=== PATIENT | male | born 1960 | race Caucasian/White ===

== ENCOUNTER 2020-03-24 12:25 | Day surgery (SDC) | payer OTHER, SELFPAY ==
[2020-03-23 13:34] VITALS: BMI 18.8
--- NOTE | 2020-03-23 14:27 | P.CONAN_ITS ---
[facility] Past Medical History Medical History (Updated 03/23/20 @ 14:50 by Shira Christy) Above knee amputation of left lower extremity Alcohol abuse Angina pectoris, unspecified Anxiety CAD (coronary artery disease) Chronic anticoagulation Depression Elevated hemoglobin Elevated uric acid in blood Employs prosthetic leg Frontal lobe syndrome History of femoral angiogram HTN (hypertension) Hypomagnesemia Hypophosphatemia Hypovitaminosis D Insomnia Left ankle pain Low back pain NSTEMI (non-ST elevated myocardial infarction) Onychogryposis PAD (peripheral artery disease) Polyneuropathy Weight loss Surgical History Surgical History (Updated 03/23/20 @ 13:29 by Ananya Murray) History of amputation of left lower extremity History of appendectomy History of hemicolectomy History of prostatectomy Social History Social History (Updated 03/23/20 @ 13:30 by Ananya Murray) Smoking Status: Current every day smoker Tobacco Type: Cigarette Smoked in Last 30 Days: Yes Patient Interested in Nicotine Replacement: No Patient Given Instructions on How to Stop Smoking: No Second Hand Smoke Exposure: No Meds Allergies Allergy/AdvReac Type Severity Reaction Status Date / Time morphine [MORPHINE] Allergy Intermediate HIGH TEMP Unverified 03/04/20 14:42 AND NIGHTMARES, nightmares Home Medications Medication Instructions Recorded Confirmed Type amlodipine 1 tab PO DAILY 03/23/20 03/23/20 History aspirin 1 tab PO DAILY 03/23/20 03/23/20 History atorvastatin 1 tab PO DAILY 03/23/20 03/23/20 History buspirone 10 mg PO DAILY 03/23/20 03/23/20 History carvedilol 1 tab PO BID 03/23/20 03/23/20 History diazepam 5 mg PO BID 03/23/20 03/23/20 History gabapentin 400 mg PO BID 03/23/20 03/23/20 History ibuprofen 1 tab PO TID 03/23/20 03/23/20 History lisinopril 1 tab PO DAILY 03/23/20 03/23/20 History melatonin 1 tab PO BEDTIME 03/23/20 03/23/20 History sertraline 1 tab PO DAILY 03/23/20 03/23/20 History Exam Exam Date and Time: March 23, 2020 1427 Height,Weight and Vital Signs: Height 5 ft 7 in Weight 54.431 kg Pertinent Lab Results Pertinent Lab Results: Laboratory Tests 01/14/20 01/14/20 01/14/20 15:06 15:06 15:06 WBC 5.1 Hgb 13.7 L Hct 39.3 L Plt Count 223 PT INR APTT D-Dimer Sodium 139 Potassium 4.6 Chloride 106 Bicarbonate 24 BUN 10 Creatinine 1.01 Magnesium 2.3 Ferritin 145 Total Bilirubin 0.4 Direct Bilirubin 0.2 AST 39 H D ALT 35 Alkaline Phosphatase 96 D Lactate Dehydrogenase 170 Troponin I High Sens 8.8 C-Reactive Protein 0.44 B-Natriuretic Peptide 75 Total Protein 6.8 Albumin 4.3 Coronavirus (PCR) 01/14/20 01/14/20 15:06 15:06 WBC Hgb Hct Plt Count PT 11.1 INR 0.9 APTT 32.7 D-Dimer 2277 Sodium Potassium Chloride Bicarbonate BUN Creatinine Magnesium Ferritin Total Bilirubin Direct Bilirubin AST ALT Alkaline Phosphatase Lactate Dehydrogenase Troponin I High Sens C-Reactive Protein B-Natriuretic Peptide Total Protein Albumin Coronavirus (PCR) NEGATIVE Narrative Narrative: Elevated D-dimer at 12/2019 ED visit. PE/DVT r/o'd. EKG 01/14/2020: NSR@78, LAFB, Inferior infarct (old), no signif change from 04/2019 Cath 02/2018 after VF/Cardiac Arrest (r/t electrolyte disturbance):mild-mod CAD, no explanation for cardiac arrest by coronary anatomy Assessment and Plan Assessment Anesthesia Assessment: Chart Reviewed
== END 2020-03-24 23:59 ==
LOC: HO.SSS 12:25
PROVIDERS: PCP Internal Medicine; Visit Provider Orthopaedic Surgery
DX: M70.22 Olecranon bursitis, left elbow (principal); Z53.9 Procedure and treatment not carried out, unspecified reason

== ENCOUNTER 2020-03-31 09:32 | Day surgery (SDC) | payer OTHER, SELFPAY ==
--- NOTE | 2020-03-30 15:35 | P.CONAN_ITS ---
HPI - Anesthesia Eval Consult details Narrative: 59yo M for Left elbow surgery *morphine allergy* [facility] Past Medical History Medical History (Updated 03/23/20 @ 14:50 by Shira Christy) Above knee amputation of left lower extremity Alcohol abuse Angina pectoris, unspecified Anxiety CAD (coronary artery disease) Chronic anticoagulation Depression Elevated hemoglobin Elevated uric acid in blood Employs prosthetic leg Frontal lobe syndrome History of femoral angiogram HTN (hypertension) Hypomagnesemia Hypophosphatemia Hypovitaminosis D Insomnia Left ankle pain Low back pain NSTEMI (non-ST elevated myocardial infarction) Onychogryposis PAD (peripheral artery disease) Polyneuropathy Weight loss Surgical History Surgical History (Updated 03/23/20 @ 13:29 by Ananya Murray) History of amputation of left lower extremity History of appendectomy History of hemicolectomy History of prostatectomy Social History Social History (Updated 03/23/20 @ 13:30 by Ananya Murray) Smoking Status: Current every day smoker Tobacco Type: Cigarette Second Hand Smoke Exposure: No Meds Allergies Allergy/AdvReac Type Severity Reaction Status Date / Time morphine [MORPHINE] Allergy Intermediate HIGH TEMP Unverified 03/04/20 14:42 AND NIGHTMARES, nightmares Home Medications Medication Instructions Recorded Confirmed Type amlodipine 1 tab PO DAILY 03/23/20 03/23/20 History aspirin 1 tab PO DAILY 03/23/20 03/23/20 History atorvastatin 1 tab PO DAILY 03/23/20 03/23/20 History buspirone 10 mg PO DAILY 03/23/20 03/23/20 History carvedilol 1 tab PO BID 03/23/20 03/23/20 History diazepam 5 mg PO BID 03/23/20 03/23/20 History gabapentin 400 mg PO BID 03/23/20 03/23/20 History ibuprofen 1 tab PO TID 03/23/20 03/23/20 History lisinopril 1 tab PO DAILY 03/23/20 03/23/20 History melatonin 1 tab PO BEDTIME 03/23/20 03/23/20 History sertraline 1 tab PO DAILY 03/23/20 03/23/20 History Exam Exam Date and Time: March 30, 2020 1535 Pertinent Lab Results Pertinent Lab Results: Laboratory Tests 01/14/20 01/14/20 01/14/20 15:06 15:06 15:06 WBC RBC Hgb Hct MCV MCH MCHC RDW Coeff of Alex Plt Count MPV Immature Gran % (Auto) Neut % (Auto) Lymph % (Auto) [place] % (Auto) Eos % (Auto) Baso % (Auto) Abs Immat Gran (auto) Absolute Lymphs (auto) Absolute Monos (auto) Absolute Eos (auto) Absolute Basos (auto) Absolute Nucleated RBC Nucleated RBC % (auto) Absolute Neutrophils PT INR APTT D-Dimer Sodium 139 Potassium 4.6 Chloride 106 Bicarbonate 24 Anion Gap 14 BUN 10 Creatinine 1.01 Estimated Creat Clear 56.8 Est GFR (Non-Af Amer) > 60 Random Glucose 76 Magnesium 2.3 Ferritin 145 Total Bilirubin 0.4 Direct Bilirubin 0.2 AST 39 H D ALT 35 Alkaline Phosphatase 96 D Lactate Dehydrogenase 170 Troponin I High Sens 8.8 C-Reactive Protein 0.44 B-Natriuretic Peptide 75 Total Protein 6.8 Albumin 4.3 Lipase 56 Procalcitonin 0.04 Coronavirus (PCR) 01/14/20 01/14/20 01/14/20 15:06 15:06 15:06 WBC 5.1 RBC 4.35 L Hgb 13.7 L Hct 39.3 L MCV 90.3 MCH 31.5 MCHC 34.9 RDW Coeff of Alex 12.9 Plt Count 223 MPV 10.6 Immature Gran % (Auto) 0.4 Neut % (Auto) 58.3 Lymph % (Auto) 25.1 [place] % (Auto) 13.6 H Eos % (Auto) 1.6 Baso % (Auto) 1.0 Abs Immat Gran (auto) 0.02 Absolute Lymphs (auto) 1.3 Absolute Monos (auto) 0.7 Absolute Eos (auto) 0.1 Absolute Basos (auto) 0.1 Absolute Nucleated RBC 0.000 Nucleated RBC % (auto) 0.0 Absolute Neutrophils 3.0 PT 11.1 INR 0.9 APTT 32.7 D-Dimer 2277 Sodium Potassium Chloride Bicarbonate Anion Gap BUN Creatinine Estimated Creat Clear Est GFR (Non-Af Amer) Random Glucose Magnesium Ferritin Total Bilirubin Direct Bilirubin AST ALT Alkaline Phosphatase Lactate Dehydrogenase Troponin I High Sens C-Reactive Protein B-Natriuretic Peptide Total Protein Albumin Lipase Procalcitonin Coronavirus (PCR) NEGATIVE Narrative Narrative: Elevated D-dimer at 12/2019 ED visit. PE/DVT r/o'd. EKG 01/14/2020: NSR@78, LAFB, Inferior infarct (old), no signif change from 04/2019 Cath 02/2018 after VF/Cardiac Arrest (r/t electrolyte disturbance):mild-mod CAD, no explanation for cardiac arrest by coronary anatomy Assessment and Plan Assessment Anesthesia Assessment: Chart Reviewed
[2020-03-31 11:10] VITALS: BMI 18.8
[2020-03-31 11:11] VITALS: BP 135/80; PULSE 80; RESP 16; TEMP 37.2; O2SAT 98
--- NOTE | 2020-03-31 11:22 | PC.NURSE ---
PT HAS LT PROSTHETIC LEG, REMOVED PRIOR TO SURGERY. SCAB NOTED DIRECTLY ON LEFT ELBOW. MD NOTIFIED AND OK'D TO PROCEED.
[2020-03-31] MEDS: Lactated Ringers 1,000 ML 100 ML IVCONT (11:29)
--- NOTE | 2020-03-31 12:25 | PC.NURSE ---
after personal inspection of the scabbed area to left elbow by surgeon, procedure cancelled. felt to be too risky to proceed due to higher chance of infection.
== END 2020-03-31 23:59 ==
LOC: HO.SSS 09:33
PROVIDERS: PCP Internal Medicine; Visit Provider Orthopaedic Surgery
DX: M70.22 Olecranon bursitis, left elbow (principal); R23.4 Changes in skin texture; Z53.09 Procedure and treatment not carried out because of other contraindication

== ENCOUNTER → 2020-04-08 09:57 | Outpatient (BNVA) | payer OTHER, SELFPAY | PROVIDERS: PCP Internal Medicine; Referring Provider Internal Medicine; Visit Provider Orthopaedic Surgery | DX: M71.129 Other infective bursitis, unspecified elbow (principal); E79.0 Hyperuricemia without signs of inflammatory arthritis and tophaceous disease; I25.119 Atherosclerotic heart disease of native coronary artery with unspecified angina pectoris; I10 Essential (primary) hypertension; E83.42 Hypomagnesemia; E83.39 Other disorders of phosphorus metabolism; F41.8 Other specified anxiety disorders; F10.10 Alcohol abuse, uncomplicated; Z88.5 Allergy status to narcotic agent; Z89.612 Acquired absence of left leg above knee | CPT/HCPCS: 99213 ==

== ENCOUNTER → 2020-04-22 11:20 | Outpatient (BNVA) | payer OTHER, SELFPAY | PROVIDERS: PCP Internal Medicine; Referring Provider Internal Medicine; Visit Provider Orthopaedic Surgery | DX: M71.122 Other infective bursitis, left elbow (principal); F17.210 Nicotine dependence, cigarettes, uncomplicated; Z89.612 Acquired absence of left leg above knee; Z88.6 Allergy status to analgesic agent; Z79.82 Long term (current) use of aspirin; Z79.899 Other long term (current) drug therapy | CPT/HCPCS: 99212 ==

== ENCOUNTER 2020-04-28 08:20 | Outpatient (RCR) | payer OTHER, SELFPAY | END 2020-06-02 13:33 | disposition home or self-care (01) | LOC: HO.WCC 08:20 | PROVIDERS: Visit Provider Surgery | DX: I70.233 Atherosclerosis of native arteries of right leg with ulceration of ankle (principal); L97.312 Non-pressure chronic ulcer of right ankle with fat layer exposed; I70.202 Unspecified atherosclerosis of native arteries of extremities, left leg; Z89.612 Acquired absence of left leg above knee | CPT/HCPCS: 11042; 99212; 99213 ==

== ENCOUNTER 2020-06-21 11:28 | Outpatient (REF) | payer OTHER, SELFPAY | END 2020-06-21 11:29 | disposition home or self-care (01) | LOC: HO.LAB 11:28 | PROVIDERS: Visit Provider Internal Medicine | DX: Z20.828 Contact with and (suspected) exposure to other viral communicable diseases (principal) | CPT/HCPCS: 36415; C9803; U0003 ==

== ENCOUNTER → 2021-03-18 10:59 | Outpatient (BNVA) | payer OTHER, SELFPAY | PROVIDERS: Visit Provider Orthopaedic Surgery | DX: S51.002D Unspecified open wound of left elbow, subsequent encounter (principal); M71.129 Other infective bursitis, unspecified elbow | CPT/HCPCS: 99212 ==

== ENCOUNTER 2021-03-21 13:52 | Outpatient (RCR) | payer OTHER, SELFPAY | END 2021-03-22 14:41 | disposition home or self-care (01) | LOC: HO.WCC 13:52 | PROVIDERS: Visit Provider Physician Assistant | DX: M70.22 Olecranon bursitis, left elbow (principal); I82.409 Acute embolism and thrombosis of unspecified deep veins of unspecified lower extremity; F17.210 Nicotine dependence, cigarettes, uncomplicated; F12.90 Cannabis use, unspecified, uncomplicated; I10 Essential (primary) hypertension; Z89.612 Acquired absence of left leg above knee; L53.9 Erythematous condition, unspecified; Z92.21 Personal history of antineoplastic chemotherapy | CPT/HCPCS: 99213 ==

== ENCOUNTER 2021-04-07 09:11 | Outpatient (REF) | payer OTHER, SELFPAY ==
[2021-04-07 10:11] LABS: Hematocrit 36.7 % (42-52); Hemoglobin 12.4 g/dl (14.0-18.0); Mean Corpuscular HGB Conc 33.8 g/dl (31.0-36.0); Mean Corpuscular Hemoglobin 30.1 pg (27.0-33.0); Mean Corpuscular Volume 89.1 fL (80-98); Mean Platelet Volume 11.1 fL (9.4-12.4); Platelet Count 202 X10*3/uL (160-400); Red Blood Count 4.12 X10*6/uL (4.60-5.80); White Blood Count 5.1 X10*3/uL (4.8-10.8)
[2021-04-07 10:24] LABS: INTERNATIONAL NORM RATIO 0.9 (0.9-1.1); Prothrombin Time 10.3 SEC (9.9-13.0)
[2021-04-07 10:36] LABS: Alanine Aminotransferase 32 U/L (0-40); Albumin Level 4.1 g/dL (3.5-5.0); Alkaline Phosphatase 88 U/L (39-117); Anion Gap 13 (12-20); Aspartate Amino Transferase 29 U/L (5-37); Bilirubin Direct 0.3 mg/dL (0.0-0.5); Bilirubin Total 0.5 mg/dL (0.0-1.0); Blood Urea Nitrogen 14 mg/dL (9-16); Calcium 9.5 mg/dL (8.4-10.2); Carbon Dioxide 25 mmol/L (22-29); Chloride 109 mmol/L (96-108); Estimated Glomerular Filt Rate 49; Glucose Random 89 mg/dL (60-115); Potassium 4.1 mmol/L (3.3-5.1); Sodium 143 mmol/L (135-145); Total Protein 6.9 g/dL (6.5-8.0)
== END 2021-04-07 09:12 | disposition home or self-care (01) ==
LOC: HO.LAB 09:11
PROVIDERS: PCP Physician Assistant; Visit Provider Internal Medicine
DX: Z01.818 Encounter for other preprocedural examination (principal); I10 Essential (primary) hypertension
CPT/HCPCS: 36415; 80048; 80076; 85027; 85610

== ENCOUNTER → 2021-04-15 11:22 | Outpatient (BNVA) | payer OTHER, SELFPAY | PROVIDERS: PCP Student in an Organized Health Care Education/Training Program; Visit Provider Physician Assistant | DX: Z01.818 Encounter for other preprocedural examination (principal); M71.122 Other infective bursitis, left elbow; S51.009D Unspecified open wound of unspecified elbow, subsequent encounter | CPT/HCPCS: 99212 ==

== ENCOUNTER 2021-04-20 11:51 | Day surgery (SDC) | payer OTHER, SELFPAY ==
[2021-04-11 13:24] VITALS: BMI 20.3
--- NOTE | 2021-04-11 13:43 | P.CONAN_ITS ---
Documented by User: Shira Christy NP 04/19/21 08:59 HPI - Anesthesia Eval Consult details Narrative: 60yo M for Left Olecranon ORIF Bursectomy PCP cleared (cardiac hx, but managed by PCP now) - moderate risk Plavix for h/o DVT and PAD s/p L AKA d/t failed fem-fem bypass ETOH daily PMFSH Active Problems Active Problems: All Active Problems (Updated 04/11/21 @ 13:22 by Maddie Milligan RN) Elbow wound (Acute) Pre-op evaluation (Acute) Subarachnoid hemorrhage, postinjury with < 1 hour LOC (Acute) Tobacco use disorder (Acute) Lumbar radiculopathy (Acute) CAD (coronary artery disease) (Acute) Hypovitaminosis D (Acute) Depression with anxiety (Acute) Malnutrition (Acute) Septic olecranon bursitis (Acute) Pure hypercholesterolemia (Acute) Essential hypertension (Acute) Past Medical History Medical History (Updated 04/11/21 @ 13:22 by Maddie Milligan RN) Above knee amputation of left lower extremity Alcohol abuse Angina pectoris, unspecified Arthritis CAD (coronary artery disease) Chronic anticoagulation COVID-19 vaccine administered Depression with anxiety DVT (deep venous thrombosis) Elevated hemoglobin Elevated uric acid in blood Employs prosthetic leg Essential hypertension Frontal lobe syndrome Heartburn History of femoral angiogram Hypomagnesemia Hypophosphatemia Hypovitaminosis D Insomnia Left ankle pain Low back pain Lumbar radiculopathy Malnutrition NSTEMI (non-ST elevated myocardial infarction) Onychogryposis PAD (peripheral artery disease) Polyneuropathy Pure hypercholesterolemia Septic olecranon bursitis Subarachnoid hemorrhage Weight loss Family History Family History Father Lung cancer Substance abuse Mother No problems noted. Surgical History Surgical History H/O colonoscopy History of amputation of left lower extremity History of appendectomy History of hemicolectomy History of prostatectomy Hx of knee surgery Hx of vascular surgery Social History Social History Housing: House Do you presently have visiting nurse or other home services: Yes ([employer]) Alcohol intake: current Alcohol intake frequency: 0-2 drinks per day Patient Tobacco Use Status: Current everyday Tobacco user Tobacco use type: Cigarette Cigarette Packs Per Day: 0.3 Cigarettes Per Day: 6.0 Years Smoked: 47 Smoked in Last 30 Days: Yes e-Cigarette/Vaping Use: Never Used Second Hand Smoke Exposure: No Use of substances other than those prescribed or required for medical reasons: Yes Substance Use Type Other:: advised to hold pre-op Substance Use Frequency: Daily Have you been hit, kicked, punched, or otherwise hurt by someone within the past year? If so, by whom?: No Are you DNR?: No Advance Directives: Yes Advance Directives Information Provided: Yes Advance Directives on File: Yes Advance Directives Date on File: 03/31/20 Recently lost weight without trying: No Eating poorly because of decreased appetite: No Nutrition Risks: No Nutritional Risk Poor oral hygiene: No (lower partial / adentulous (upper)) service: No Current occupational status: disabled Current occupational exposures/hazards: No Meds Allergies Allergy/AdvReac Type Severity Reaction Status Date / Time morphine [MORPHINE] Allergy Intermediate diaphoresis Verified 04/20/21 12:21 /fever/nigh tmares Home Medications Medication Instructions Recorded Confirmed Last Taken Type atorvastatin 40 mg tablet 40 mg PO BEDTIME 04/11/21 04/11/21 Unknown History clopidogrel 75 mg tablet 1 tab PO DAILY 04/11/21 04/11/21 04/17/21 History Exam Exam Date and Time: April 11, 2021 1343 Height,Weight and Vital Signs: Height 5 ft 7 in Weight 58.967 kg Pertinent Lab Results Pertinent Lab Results: Laboratory Tests 04/07/21 04/07/21 09:33 09:33 WBC 5.1 Hgb 12.4 L Hct 36.7 L Plt Count 202 Sodium 143 Potassium 4.1 Chloride 109 H Carbon Dioxide 25 BUN 14 Creatinine 1.46 H Laboratory Tests 04/07/21 04/07/21 09:33 09:33 PT 10.3 INR 0.9 Total Bilirubin 0.5 Direct Bilirubin 0.3 AST 29 ALT 32 Alkaline Phosphatase 88 Total Protein 6.9 Albumin 4.1 Narrative Narrative: EKG 03/2021 NSR @ 65 Marked LAD long QTc @ 478 Assessment and Plan Assessment Anesthesia Assessment: Chart Reviewed Documented by User: Suha Berman MD 04/20/21 12:35 [facility] Past Medical History Medical History (Updated 04/11/21 @ 13:22 by Maddie Milligan RN) Above knee amputation of left lower extremity Alcohol abuse Angina pectoris, unspecified Arthritis CAD (coronary artery disease) Chronic anticoagulation COVID-19 vaccine administered Depression with anxiety DVT (deep venous thrombosis) Elevated hemoglobin Elevated uric acid in blood Employs prosthetic leg Essential hypertension Frontal lobe syndrome Heartburn History of femoral angiogram Hypomagnesemia Hypophosphatemia Hypovitaminosis D Insomnia Left ankle pain Low back pain Lumbar radiculopathy Malnutrition NSTEMI (non-ST elevated myocardial infarction) Onychogryposis PAD (peripheral artery disease) Polyneuropathy Pure hypercholesterolemia Septic olecranon bursitis Subarachnoid hemorrhage Weight loss Functional capacity: independent ambulation Family History Family History Father Lung cancer Substance abuse Mother No problems noted. 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 If so, by whom?: No Are you DNR?: No Advance Directives: Yes Advance Directives Information Provided: Yes Advance Directives on File: Yes Advance Directives Date on File: 03/31/20 Recently lost weight without trying: No Eating poorly because of decreased appetite: No Nutrition Risks: No Nutritional Risk Poor oral hygiene: No (lower partial / adentulous (upper)) service: No Current occupational status: disabled Current occupational exposures/hazards: No Meds Allergies Allergy/AdvReac Type Severity Reaction Status Date / Time morphine [MORPHINE] Allergy Intermediate diaphoresis Verified 04/20/21 12:21 /fever/nigh tmares Home Medications Medication Instructions Recorded Confirmed Last Taken Type atorvastatin 40 mg tablet 40 mg PO BEDTIME 04/11/21 04/11/21 Unknown History clopidogrel 75 mg tablet 1 tab PO DAILY 04/11/21 04/11/21 04/17/21 History Exam Airway Mallampati Class: II TM Dist: >3cm Denture: Upper and Lower Heart: RRR Lungs: CTA Assessment and Plan Final Anesthetic Review Family History of Problems with Anesthesia: No History of Problems with Anesthesia: No ASA Class: III Final Preanesthetic Review: No Changes in Pt Med Stat Patient Risk: Intermediate Procedure Risk: Intermediate Anesthetic Plan Anesthetic Plan: GA Disposition: Standard PACU
[2021-04-20] VITALS (7 sets, daily range): BP systolic 151–176; BP diastolic 82–94; PULSE 76–81; RESP 16–18; TEMP 36.2–37.3; O2SAT 96–99
[2021-04-20] MEDS: Lactated Ringers 1,000 ML 100 ML IVCONT (13:10)
--- NOTE | 2021-04-20 15:08 | HO.ANESPROP2 ---
[facility] Active Problems Active Problems: All Active Problems (Updated 04/11/21 @ 13:22 by Maddie Milligan RN) Elbow wound (Acute) Pre-op evaluation (Acute) Subarachnoid hemorrhage, postinjury with < 1 hour LOC (Acute) Tobacco use disorder (Acute) Lumbar radiculopathy (Acute) CAD (coronary artery disease) (Acute) Hypovitaminosis D (Acute) Depression with anxiety (Acute) Malnutrition (Acute) Septic olecranon bursitis (Acute) Pure hypercholesterolemia (Acute) Essential hypertension (Acute) Past Medical History Medical History (Updated 04/11/21 @ 13:22 by Maddie Milligan RN) Above knee amputation of left lower extremity Alcohol abuse Angina pectoris, unspecified Arthritis CAD (coronary artery disease) Chronic anticoagulation COVID-19 vaccine administered Depression with anxiety DVT (deep venous thrombosis) Elevated hemoglobin Elevated uric acid in blood Employs prosthetic leg Essential hypertension Frontal lobe syndrome Heartburn History of femoral angiogram Hypomagnesemia Hypophosphatemia Hypovitaminosis D Insomnia Left ankle pain Low back pain Lumbar radiculopathy Malnutrition NSTEMI (non-ST elevated myocardial infarction) Onychogryposis PAD (peripheral artery disease) Polyneuropathy Pure hypercholesterolemia Septic olecranon bursitis Subarachnoid hemorrhage Weight loss Functional capacity: independent ambulation Family History Family History Father Lung cancer Substance abuse Mother No problems noted. 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 If so, by whom?: No Are you DNR?: No Advance Directives: Yes Advance Directives Information Provided: Yes Advance Directives on File: Yes Advance Directives Date on File: 03/31/20 Recently lost weight without trying: No Eating poorly because of decreased appetite: No Nutrition Risks: No Nutritional Risk Poor oral hygiene: No (lower partial / adentulous (upper)) service: No Current occupational status: disabled Current occupational exposures/hazards: No Meds Allergies Allergy/AdvReac Type Severity Reaction Status Date / Time morphine [MORPHINE] Allergy Intermediate diaphoresis Verified 04/20/21 12:21 /fever/nigh tmares Active Medications: Current Medications Albuterol Sulfate (Albuterol Sulfate (0.083%) 2.5 Mg/3 Ml Vial.Neb) 2.5 mg INHALE ONCE PRN PRN Reason: Shortness of Breath/Wheezing Fentanyl (Fentanyl Citrate/Pf 100 Mcg/2 Ml Vial) 25 mcg IVPUSH Q5M PRN; Protocol PRN Reason: Pain, Moderate (Pain Scale 4-6 Lactated Ringer's (Lr) 1,000 mls @ 100 mls/hr IVCONT .Q10H ROLAN Last Admin: 04/20/21 13:10 Dose: 100 mls/hr Documented by: Home Medications Medication Instructions Recorded Confirmed Last Taken Type atorvastatin 40 mg tablet 40 mg PO BEDTIME 04/11/21 04/11/21 Unknown History clopidogrel 75 mg tablet 1 tab PO DAILY 04/11/21 04/11/21 04/17/21 History Exam Exam Date and Time: April 20, 2021 1508 Height,Weight and Vital Signs: Height 5 ft 7 in Weight 58.967 kg Last Vital Signs Temp 99.2 F 04/20/21 12:26 Pulse 81 04/20/21 12:26 Resp 16 04/20/21 12:26 BP 172/85 H 04/20/21 12:26 Pulse Ox 99 04/20/21 12:26 Airway Mallampati Class: II TM Dist: >3cm Neck ROM: Full Denture: Upper Heart: RRR Lungs: CTA Assessment and Plan Final Anesthetic Review Family History of Problems with Anesthesia: No History of Problems with Anesthesia: No
--- NOTE | 2021-04-20 15:32 | PM.OP ---
Brief Operative Note Date of Service: 04/20/21 Pre-op diagnosis: chronic bursitis left elbow Post-op diagnosis: same Procedure: left elbow bursectomy Surgeon: Jacob Arana MD Anesthesia: GETA and local Was an Graduate Engineer used for this Procedure?: No Estimated blood loss (mL): 5 Tourniquet time (min): 17 IV fluids (mL): 400 Pathology: other Condition: stable Disposition: PACU
[2021-04-20] MEDS: oxyCODONE HCl Immed Release 5 MG TABLET PO (16:20)
--- NOTE | 2021-05-11 12:03 | P.OP_ITS ---
Operative Note Operative Note Date of Service: 05/11/21 Narrative: Pre-op diagnosis: chronic bursitis left elbow Post-op diagnosis: same Procedure: left elbow bursectomy Surgeon: Jacob Arana MD Anesthesia: GETA and local Was an [place] Laboratory Assistant used for this Procedure?: No Estimated blood loss (mL): 5 Tourniquet time (min): 17 IV fluids (mL): 400 Pathology: other Condition: stable Disposition: PACU Procedure in detail: Ruddy was brought to the operating room placed supine the operative table and prepped and draped in standard sterile fashion. A time-out was called to identify proper site, proper procedure, proper surgeon and IV antibiotics per weight were administered. I injected approximately 10 minutes mL of 0.25% Marcaine without epinephrine around the olecranon bursa. I began by extending the posterior olecranon open draining sinus proximally and distally about 5 mm. I then removed copious non purulent bursal tissue. There was no soila purulence. The bone was debrided and the skin was then. I then irrigated copiously and closed with nylon suture in inverted mattress fashion. The skin quality was reasonable and there was no evidence of soila infection. Sterile dressings were then applied and the patient was awakened from anesthesia brought to recovery room in stable condition. there were no known complications.
== END 2021-04-20 16:57 | disposition home or self-care (01) ==
PROVIDERS: PCP Internal Medicine; Visit Provider Orthopaedic Surgery
PROC: (CPT 24105; principal; 2021-04-20 13:20)
DX: M71.122 Other infective bursitis, left elbow (principal); I10 Essential (primary) hypertension; I25.10 Atherosclerotic heart disease of native coronary artery without angina pectoris; I25.2 Old myocardial infarction; I73.9 Peripheral vascular disease, unspecified; F10.10 Alcohol abuse, uncomplicated; Z89.612 Acquired absence of left leg above knee; Z86.718 Personal history of other venous thrombosis and embolism; Z79.01 Long term (current) use of anticoagulants; Z79.899 Other long term (current) drug therapy; Z79.82 Long term (current) use of aspirin; Z88.8 Allergy status to other drugs, medicaments and biological substances; Z90.49 Acquired absence of other specified parts of digestive tract; F17.210 Nicotine dependence, cigarettes, uncomplicated
CPT/HCPCS: 24105; 87071; 87205; J0690; J1100; J2250; J2405; J3010

== ENCOUNTER → 2021-05-02 12:23 | Outpatient (BNVA) | payer OTHER, SELFPAY | PROVIDERS: PCP Internal Medicine; Visit Provider Physician Assistant | DX: Z48.1 Encounter for planned postprocedural wound closure (principal); F17.210 Nicotine dependence, cigarettes, uncomplicated; Z71.6 Tobacco abuse counseling | CPT/HCPCS: 99212 ==

== ENCOUNTER → 2021-05-06 08:45 | Outpatient (BNVA) | payer OTHER, SELFPAY | PROVIDERS: Visit Provider Physician Assistant | DX: M70.22 Olecranon bursitis, left elbow (principal); S51.009D Unspecified open wound of unspecified elbow, subsequent encounter | CPT/HCPCS: 99212 ==

== ENCOUNTER → 2021-05-11 11:13 | Outpatient (BNVA) | payer OTHER, SELFPAY | PROVIDERS: Visit Provider Physician Assistant | DX: T81.89XA Other complications of procedures, not elsewhere classified, initial encounter (principal); S51.002D Unspecified open wound of left elbow, subsequent encounter | CPT/HCPCS: 99212 ==

== ENCOUNTER 2021-05-17 11:54 | Day surgery (SDC) | payer OTHER, SELFPAY ==
[2021-05-17 12:08] VITALS: BMI 19.5
[2021-05-17 12:14] VITALS: BP 108/80; PULSE 72; RESP 18; TEMP 37; O2SAT 98
--- NOTE | 2021-05-17 13:44 | MHC.SHP ---
Pre-Procedural Eval Section A Date of Service: 05/17/21 The patient is an INPATIENT: No Changes since office visit: Yes Patient answered all questions; No Cold of Flu in the past 2 weeks, No New Medical Problems and No Changes in Medication The History & Physical has been completed within 30 days and I have reviewed it.: Yes Section B Chief Complaint: Open elbow wound Allergies: Allergies Allergy/AdvReac Type Severity Reaction Status Date / Time morphine [MORPHINE] Allergy Intermediate diaphoresis Verified 05/11/21 11:30 /fever/nigh tmares Plan I have reviewed the history and physical and performed a pertinent physical examination on my patient. No changes have occurred unless specified.
[2021-05-17 14:27] VITALS: BP 158/82; PULSE 68; RESP 16; TEMP 37; O2SAT 99
--- NOTE | 2021-05-17 14:42 | PM.OP ---
Brief Operative Note Date of Service: 05/17/21 Pre-op diagnosis: left elbow olecranon bursitis with non healing wound Post-op diagnosis: same Procedure: Irrigation and debridement and dealyed secondary closure Implants: none Surgeon: Jacob Arana MD Anesthesia: local Estimated blood loss (mL): 20 IV fluids (mL): 0 Pathology: none sent Condition: stable Disposition: PACU
--- NOTE | 2021-05-17 14:48 | W.PM.OPN ---
Operative Note Operative Note Date of Service: 05/17/21 Narrative: Pre-op diagnosis: left elbow olecranon bursitis with non healing wound Post-op diagnosis: same Procedure: Irrigation and debridement and dealyed secondary closure Implants: none Surgeon: Jacob Arana MD Anesthesia: local Estimated blood loss (mL): 20 IV fluids (mL): 0 Pathology: none sent Condition: stable Disposition: PACU Procedure in detail patient was brought to the operative room placed supine on the operative table and prepped and draped in standard sterile fashion. A time-out was called to identify proper site proper procedure and proper surgeon. I began by injecting approximately 8 mL of 1% lidocaine with epinephrine around the open wound of the left olecranon. Once he was appropriately anesthetized I debrided the bursal bed and the olecranon bone circumferentially in the area of the open skin with a rongeur and a currette. There was mild undermining. The skin edges were cleaned up with a #15 blade and I copiously irrigated with 3 L of warm saline. I then closed with 3-0 nylon and injected additional 8 mL of cord % Marcaine plain. Patient was then placed in sterile dressing, Bhavin wrap and a sling and brought to the recovery room in stable condition. There were no known complications.
== END 2021-05-17 14:43 | disposition home or self-care (01) ==
PROVIDERS: PCP Internal Medicine; Visit Provider Orthopaedic Surgery
PROC: (CPT 13160; principal; 2021-05-17 13:10)
DX: T81.31XA Disruption of external operation (surgical) wound, not elsewhere classified, initial encounter (principal); Z98.890 Other specified postprocedural states; Y83.8 Other surgical procedures as the cause of abnormal reaction of the patient, or of later complication, without mention of misadventure at the time of the procedure; Y92.9 Unspecified place or not applicable; S51.002A Unspecified open wound of left elbow, initial encounter; M70.22 Olecranon bursitis, left elbow; I10 Essential (primary) hypertension; I73.9 Peripheral vascular disease, unspecified; I25.2 Old myocardial infarction; I25.10 Atherosclerotic heart disease of native coronary artery without angina pectoris; F17.210 Nicotine dependence, cigarettes, uncomplicated; F10.10 Alcohol abuse, uncomplicated; Z89.612 Acquired absence of left leg above knee; Z79.899 Other long term (current) drug therapy; Z88.8 Allergy status to other drugs, medicaments and biological substances
CPT/HCPCS: 13160; J3010

== ENCOUNTER → 2021-05-27 10:41 | Outpatient (BNVA) | payer OTHER, SELFPAY | PROVIDERS: PCP Internal Medicine; Visit Provider Physician Assistant | DX: M70.22 Olecranon bursitis, left elbow (principal) | CPT/HCPCS: 99212 ==

== ENCOUNTER → 2021-06-09 09:47 | Outpatient (BNVA) | payer OTHER, SELFPAY | PROVIDERS: PCP Internal Medicine; Visit Provider Physician Assistant | DX: M70.22 Olecranon bursitis, left elbow (principal) | CPT/HCPCS: 99212 ==

== ENCOUNTER 2021-06-14 14:12 | Outpatient (RCR) | payer OTHER, SELFPAY | END 2021-11-03 15:00 | disposition home or self-care (01) | LOC: HO.WCC 14:12 | PROVIDERS: PCP Internal Medicine; Visit Provider Physician Assistant | DX: L98.492 Non-pressure chronic ulcer of skin of other sites with fat layer exposed (principal); T81.31XA Disruption of external operation (surgical) wound, not elsewhere classified, initial encounter; I95.9 Hypotension, unspecified; M70.22 Olecranon bursitis, left elbow; F17.210 Nicotine dependence, cigarettes, uncomplicated; I10 Essential (primary) hypertension; I25.2 Old myocardial infarction; I25.10 Atherosclerotic heart disease of native coronary artery without angina pectoris; Z89.612 Acquired absence of left leg above knee; Z72.89 Other problems related to lifestyle; Z86.718 Personal history of other venous thrombosis and embolism; Z86.73 Personal history of transient ischemic attack (TIA), and cerebral infarction without residual deficits; Z91.19 Patient's noncompliance with other medical treatment and regimen | CPT/HCPCS: 11042; 15271; 87071; 87205; 97597; 99212; 99213; Q4187 ==